=== PATIENT | male | born 1950 | race Caucasian/White ===

== ENCOUNTER → 2021-11-23 09:51 | Outpatient (REF) | payer MEDICARE, OTHER, SELFPAY | LOC: ANHLAB 09:51 | PROVIDERS: PCP Physician Assistant; Visit Provider Nurse Practitioner | DX: C44.42 Squamous cell carcinoma of skin of scalp and neck (principal) | CPT/HCPCS: 88305; 88331 ==

== ENCOUNTER → 2022-03-29 07:15 | Outpatient (REF) | payer MEDICARE, OTHER, SELFPAY | LOC: ANHLAB 07:15 | PROVIDERS: PCP Physician Assistant; Visit Provider Nurse Practitioner | DX: C44.529 Squamous cell carcinoma of skin of other part of trunk (principal); C44.329 Squamous cell carcinoma of skin of other parts of face | CPT/HCPCS: 88305; 88331 ==